=== PATIENT | female | born 1965 | race Caucasian/White ===

== ENCOUNTER 2017-11-07 12:14 | Observation (INO) ==
--- NOTE | 2017-11-07 13:35 | XR ---
EXAM DATE: 11/07/2017 1:30 PM EDT AGE/SEX: 52 years / Female INDICATIONS: . Pain left chest for 1 week, tingling in left arm CLINICAL DATA: This is the patient's initial encounter. Patient reports that signs and symptoms have been present for 1 week and indicates a pain score of 7/10. MEDICAL/SURGICAL HISTORY: None. None. COMPARISON: No prior exams available for comparison. FINDINGS: PA and lateral views of the chest demonstrate the lungs to be symmetrically aerated without evidence of mass, infiltrate or effusion. The cardiomediastinal contours are unremarkable. Osseous structures are intact. CONCLUSION: Negative examination. Electronically signed by: Adonis Barrientos MD 11/07/2017 1:34 PM EDT
[2017-11-07 13:52] LABS: Baso # (Auto) 0.1 th/mm3 (0.0-0.2); Baso % (Auto) 0.6 % (0.0-2.0); Eos # (Auto) 0.3 th/mm3 (0.0-0.4); Eos % (Auto) 2.6 % (0.0-4.0); Hematocrit 41.2 % (35.0-46.0); Hemoglobin 13.9 gm/dL (11.6-15.3); Lymph # (Auto) 3.2 th/mm3 (1.0-4.8); Lymph % (Auto) 33.1 % (9.0-44.0); Mean Corpuscular HGB Conc 33.8 % (32.0-36.0); Mean Corpuscular Hemoglobin 30.4 pg (27.0-34.0); Mean Platelet Volume 8.3 fL (7.0-11.0); Mono # (Auto) 0.7 th/mm3 (0.0-0.9); Mono % (Auto) 7.1 % (0.0-8.0); Neut # (Auto) 5.5 th/mm3 (1.8-7.7); Neut % (Auto) 56.6 % (16.0-70.0); Platelet Count 297 th/mm3 (150-450); Red Blood Count 4.58 mil/mm3 (4.00-5.30); White Blood Count 9.8 th/mm3 (4.0-11.0)
[2017-11-07 14:02] LABS: Activated Partial Thrombo Time 27.1 sec (24.3-30.1); INR 1.1 Ratio; Prothrombin Time 10.7 sec (9.8-11.6)
[2017-11-07 14:10] LABS: Anion Gap 7 meq/L (5-15); Blood Urea Nitrogen 12 mg/dL (7-18); Calcium 9.2 mg/dL (8.5-10.1); Carbon Dioxide 26.7 meq/L (21.0-32.0); Chloride 109 meq/L (98-107); Glomerular Filtration Rate 75 mL/min (>89); Glucose,Random 83 mg/dL (74-106); Potassium 4.4 meq/L (3.5-5.1); Sodium 143 meq/L (136-145)
[2017-11-07 14:14] LABS: Creatine Kinase 117 U/L (26-192)
[2017-11-07 14:27] LABS: Creatine Kinase MB 1.7 ng/mL (0.5-3.6)
--- NOTE | 2017-11-07 14:30 | ED ---
HPI General Chief Complaint: Chest Pain Stated Complaint: Chest Pain/ SOB/ Left arm radiation Time Seen by Provider: 11/07/17 14:17 History of Present Illness HPI narrative: This patient complains of chest pain. Location is left upper chest. It has been coming and going on and off for a week. Feels like an aching and a pressure. Sometimes she does have symptoms radiate down the left arm. Symptoms are not exertional. They can last for hours but do resolve spontaneously. No alleviating factors. No exacerbating factors. Severity is moderate. She has no history of cardiac disease and has never had stress testing. She is running high blood pressure today, not sure if she has chronic hypertension. She does smoke. Complete Quality Measures for STEMI Alert Patients Related Data Home Medications Medication Instructions Recorded Confirmed No Known Home Medications 11/07/17 11/07/17 Allergies Allergy/AdvReac Type Severity Reaction Status Date / Time penicillin G Allergy Severe BREAKS OUT Verified 11/07/17 12:24 IN A HIVES ALL OVER THE BODY INCLUDING THE FACE Review of Systems Except as stated in HPI: all other systems reviewed are negative [facility] Medical History Medical History Patient denies medical problems (Acute) Social History Social History Substance History: No History of Abuse Second Hand Smoke Exposure: No Smoking Status: Current some day smoker Tobacco Type: Cigarettes How Often Do You Have a Drink Containing Alcohol: Never Recent Travel in [facility] within the Last 8 Weeks: No Recent Out of Country Travel within the Last 8 Weeks: No Substance Abuse Detail Marijuana: Substance Use Status: Active Route Used Substance Abuse: Inhalation Last Used: last week Reason for Use: Calm Down Immunization History Tetanus Immunization: <5 Years Hx Influenza Vaccine This Season: No Exam Narrative Exam Narrative: GENERAL: Well-nourished, well-developed patient in no apparent distress. SKIN: Focused skin assessment reveals no rash and nodules. Skin is Warm and dry. HEAD: Atraumatic. Normocephalic. EYES: Pupils equal and round. No scleral icterus. No injection or drainage. ENT: No nasal bleeding or discharge. Mucous membranes pink and moist. NECK: Trachea midline. No JVD. CARDIOVASCULAR: Regular rate and rhythm. No murmur appreciated. RESPIRATORY: No accessory muscle use. Clear to auscultation. Breath sounds equal bilaterally. GASTROINTESTINAL: Abdomen soft, non-tender, nondistended. Hepatic and splenic margins not palpable. MUSCULOSKELETAL: No obvious deformities. No clubbing. No cyanosis. No edema. NEUROLOGICAL: Awake and alert. No obvious cranial nerve deficits. Motor grossly within normal limits. Normal speech. PSYCHIATRIC: Appropriate mood and affect; insight and judgment normal. Course Initial Documented Vital Signs Temperature 98.2 F 11/07/17 12:21 Pulse Rate 60 11/07/17 12:21 Respiratory Rate 15 11/07/17 12:21 Blood Pressure 150/83 H 11/07/17 12:21 Pulse Oximetry 99 11/07/17 12:21 Last Documented Vital Signs Temperature 98.2 F 11/07/17 12:21 Pulse Rate 60 11/07/17 14:33 Respiratory Rate 17 11/07/17 14:31 Blood Pressure 150/68 H 11/07/17 14:31 Pulse Oximetry 100 11/07/17 14:31 Medical Decision Making MDM Narrative Medical decision making narrative: IV placed and labs sent I gave her an aspirin I reviewed her EKG which looks normal I reviewed her chest x-ray which is normal Lab studies are normal including one set of cardiac enzymes. She has Multiple risk factors for cardiac disease. I am recommending 23 hour observation in the chest pain center to rule out cardiac cause of her symptoms. She is currently deciding if she will agree to stay or sign out speaking with her daughter in the room who is a [employer] RN. She has agreed to stay. Differential Diagnosis Differential Diagnosis: Differential diagnosis includes NH, angina, pericarditis , pleurisy, GERD, anxiety. Medical Records Medical records reviewed: Yes I reviewed the patient's medical records. Lab Data Result diagrams: 11/07/17 12:56 11/07/17 12:56 Lab Results 11/07/17 11/07/17 11/07/17 Range/Units 12:56 12:56 12:56 WBC 9.8 (4.0-11.0) th/mm3 RBC 4.58 (4.00-5.30) mil/mm3 Hgb 13.9 (11.6-15.3) gm/dL Hct 41.2 (35.0-46.0) % MCV 90.0 (80.0-100.0) fL MCH 30.4 (27.0-34.0) pg MCHC 33.8 (32.0-36.0) % RDW 14.0 (11.6-17.2) % Plt Count 297 (150-450) th/mm3 MPV 8.3 (7.0-11.0) fL Neut % (Auto) 56.6 (16.0-70.0) % Lymph % (Auto) 33.1 (9.0-44.0) % [place] % (Auto) 7.1 (0.0-8.0) % Eos % (Auto) 2.6 (0.0-4.0) % Baso % (Auto) 0.6 (0.0-2.0) % Neut # (Auto) 5.5 (1.8-7.7) th/mm3 Lymph # (Auto) 3.2 (1.0-4.8) th/mm3 [place] # (Auto) 0.7 (0.0-0.9) th/mm3 Eos # (Auto) 0.3 (0.0-0.4) th/mm3 Baso # (Auto) 0.1 (0.0-0.2) th/mm3 WBC Differential . Differential Comment Auto diff final PT 10.7 (9.8-11.6) sec INR 1.1 Ratio APTT 27.1 (24.3-30.1) sec Sodium 143 (136-145) meq/L Potassium 4.4 (3.5-5.1) meq/L Chloride 109 H (98-107) meq/L Carbon Dioxide 26.7 (21.0-32.0) meq/L Anion Gap 7 (5-15) meq/L BUN 12 (7-18) mg/dL Creatinine 0.80 (0.50-1.00) mg/dL Estimated GFR 75 L (>89) mL/min Random Glucose 83 (74-106) mg/dL Calcium 9.2 (8.5-10.1) mg/dL Total Creatine Kinase 117 (26-192) U/L CK-MB (CK-2) 1.7 (0.5-3.6) ng/mL Troponin I Less than 0.02 L (0.02-0.05) ng/mL Imaging Data Radiologist's impression: Chest X-Ray 11/07/17 12:26 CONCLUSION: Negative examination. Discharge Plan Discharge Disposition Patient Disposition: 30 Still Patient Discharge Details Diagnosis: Atypical chest pain Physicians Team ED Provider: Luis Leon Primary Care Provider: Primary Care Physici,No Rxs /Orders / Referrals /Forms Prescriptions: No Action No Known Home Medications RF: 0 Discharge Instructions Patient Printed Instructions: Chest Pain (ED) Discharge Interventions Interventions: Vital Signs Last Done: 11/07/17 14:33 Status ED Status: With Doctor
[2017-11-08 03:26] VITALS: O2SAT 98
[2017-11-08 07:46] VITALS: TEMP 98
--- NOTE | 2017-11-08 08:19 | P.HPCA ---
History of Present Illness Primary Care Physician: No Primary Care Physician Chief Complaint: Chest pain History of Present Illness: 52-year-old female with no past significant medical history presents emergency room for further evaluation chest pain. Onset 1 week. Location left anterior chest. Characterized as squeezing. Mild to moderate in severity. No radiation of discomfort although endorses left arm numbness and tingling. Duration generally lasts one hour, followed by lingering discomfort for a couple of hours. No associated symptoms of nausea, vomiting, diaphoresis. Endorses slight dyspnea. Does not hurt to take a deep breath. Certain movements such as moving left arm or laying on left side improves discomfort. No precipitating or relieving factors. Denies similar pain in the past. Discomfort occurs daily, no particular time of day. Yesterday episode began around 0700 and last many hours. Endorses current situation stress and wonders if discomfort may be stress related. Currently has nonproductive cough, no fever , illness, or recent injury. No known medical problems, has not seen an PCP in years. Denies past cardiac testing. - Diagnosis (1) Atypical chest pain (2) Tobacco use Review of Systems All other systems reviewed negative except as stated in [facility] PMF[facility] - History History Provided By: Patient - Medical History Medical History: Medical History (Last Reviewed 11/08/17 @ 08:57 by DIGNA Saucedo) Patient denies medical problems - Surgical History Surgical History: Surgical History (Last Updated 11/08/17 @ 08:57 by DIGNA Saucedo) H/O section - Family History Family History: Family History (Last Updated 11/08/17 @ 08:58 by DIGNA Saucedo) Father Hx of CABG Mother Hx of CABG - Tobacco History Second Hand Smoke Exposure: No Tobacco Use In Past 30 Days: Yes (3 cigarettes/weekly) Smoking Status: Current some day smoker Tobacco Type: Cigarettes - Alcohol History How Often Do You Have a Drink Containing Alcohol: Never - Substance Use History Substance History: No History of Abuse - Substance Use Type Marijuana Status: Active Route Used: Inhalation Last Used: last week Reason for Use: Calm Down - Travel History History of Recent Travel: No Recent Travel in the [place] Within the Last 8 Weeks: No Recent Travel Out of the Country Within the Last 8 Weeks: No - Immunization History Tetanus Immunization: <5 Years Hx Influenza Vaccine This Season: No Medications and Allergies Allergies Allergy/AdvReac Type Severity Reaction Status Date / Time penicillin G Allergy Severe BREAKS OUT Verified 11/07/17 12:24 IN A HIVES ALL OVER THE BODY INCLUDING THE FACE Home Medications Medication Instructions Recorded Confirmed Type No Known Home Medications 11/07/17 11/07/17 History Exam Vital signs: Vital Signs 11/07/17 12:21 11/07/17 14:17 11/07/17 14:31 Temperature 98.2 F Pulse Rate 60 60 65 Respiratory Rate 15 18 17 Blood Pressure 150/83 H 181/84 H 150/68 H Pulse Oximetry 99 100 100 11/07/17 14:33 11/07/17 17:47 11/07/17 20:00 Temperature 98.4 F 98.6 F Pulse Rate 60 82 63 Respiratory Rate 20 16 Blood Pressure 136/82 144/81 H Pulse Oximetry 94 L 98 11/07/17 21:20 11/08/17 00:00 11/08/17 03:25 Temperature 98.3 F 98.3 F Pulse Rate 63 64 63 Respiratory Rate 16 16 Blood Pressure 128/68 124/65 Pulse Oximetry 97 98 11/08/17 04:00 11/08/17 07:45 Temperature 98.0 F Pulse Rate 56 L 66 Respiratory Rate 16 Blood Pressure 131/73 Pulse Oximetry Intake & Output 11/07/17 11/08/17 11/08/17 18:59 06:59 18:59 Weight 75.75 kg Other: # Voids 2 # Bowel Movements 0 Narrative: Pleasant female in no acute distress - Constitutional no acute distress, average body habitus - Routine HEENT Exam Head: Present: normocephalic, atraumatic Eye: Present: EOMI, PERRL, normal accommodation ENT: Present: mucous membranes moist, dentition normal - Routine Neck Exam Present: supple, full ROM. Absent: JVD - Routine Chest/Breast/Axilla Exam Chest wall: Absent: tenderness - Routine Respiratory Exam Present: CTA bilaterally. Absent: rhonchi, wheezes, crackles - Routine Cardiovascular Exam Present: RRR. Absent: murmur, gallop, rubs - Routine Abdominal Exam Present: soft, normoactive bowel sounds. Absent: tenderness, distended - Routine Extremities Exam Present: full ROM, pulses intact. Absent: edema - Routine Skin Exam Present: intact, dry, warm - Routine Neurological Exam Present: alert, oriented X3, CN II-XII intact, moving all extremities, normal tone - Routine Psychiatric Exam Present: normal affect, normal thought process, cooperative, good insight, good judgment Comments: Mildly anxious. Results 11/07/17 12:56 11/07/17 12:56 Cardiac Enzymes 11/07/17 11/07/17 11/07/17 Range/Units 12:56 18:15 21:00 CK-MB (CK-2) 1.7 (0.5-3.6) ng/mL Troponin I Less than 0.02 L Less than 0.02 L Less than 0.02 L (0.02-0.05) ng/mL 11/08/17 Range/Units 05:35 CK-MB (CK-2) (0.5-3.6) ng/mL Troponin I Less than 0.02 L (0.02-0.05) ng/mL Coagulation 11/07/17 Range/Units 12:56 PT 10.7 (9.8-11.6) sec APTT 27.1 (24.3-30.1) sec CBC 11/07/17 Range/Units 12:56 WBC 9.8 (4.0-11.0) th/mm3 RBC 4.58 (4.00-5.30) mil/mm3 Hgb 13.9 (11.6-15.3) gm/dL Hct 41.2 (35.0-46.0) % Plt Count 297 (150-450) th/mm3 Neut # (Auto) 5.5 (1.8-7.7) th/mm3 Lymph # (Auto) 3.2 (1.0-4.8) th/mm3 [place] # (Auto) 0.7 (0.0-0.9) th/mm3 Eos # (Auto) 0.3 (0.0-0.4) th/mm3 Baso # (Auto) 0.1 (0.0-0.2) th/mm3 Comprehensive Metabolic Panel 11/07/17 Range/Units 12:56 Sodium 143 (136-145) meq/L Potassium 4.4 (3.5-5.1) meq/L Chloride 109 H (98-107) meq/L Carbon Dioxide 26.7 (21.0-32.0) meq/L BUN 12 (7-18) mg/dL Creatinine 0.80 (0.50-1.00) mg/dL Calcium 9.2 (8.5-10.1) mg/dL Intake and Output 11/07/17 11/08/17 11/08/17 22:59 06:59 14:59 Other: # Voids 2 # Bowel Movements 0 EKG interpretations - EKG EKG results cardiology: sinus rhythm, normal axis, normal QRS, normal ST/T Caprini VTE Risk Assessment Caprini VTE Risk Assessment: No/Low Risk (score <= 1) Caprini Risk Assessment Model: Point Value = 1 Point Value = 2 Point Value = 3 Point Value = 5 Age 41-60 Minor surgery BMI > 25 kg/m2 Swollen legs Varicose veins or History of unexplained or recurrent spontaneous Oral contraceptives or hormone replacement Sepsis (< 1 month) Serious lung disease, including pneumonia (< 1 month) Abnormal pulmonary function Acute myocardial infarction Congestive heart failure (< 1 month) History of inflammatory bowel disease Medical patient at bed rest Age 61-74 Arthroscopic surgery Major open surgery (> 45 min) Laparoscopic surgery (> 45 min) Malignancy Confined to bed (> 72 hours) Immobilizing plaster cast Central venous access Age >= 75 History of VTE Family history of VTE Factor V Leiden Prothrombin [id number] Lupus anticoagulant Anticardiolipin antibodies Elevated serum homocysteine Heparin-induced thrombocytopenia Other congenital or acquired thrombophilia Stroke (< 1 month) Elective arthroplasty Hip, pelvis, or leg fracture Acute spinal cord injury (< 1 month) Prophylaxis Regimen: Total Risk Factor Score Risk Level Prophylaxis Regimen 0-1 Low Early ambulation 2 Moderate Order ONE of the following: *Sequential Compression Device (SCD) *Heparin 5000 units SQ BID 3-4 Higher Order ONE of the following medications: *Heparin 5000 units SQ TID *Enoxaparin/Lovenox 40 mg SQ daily (WT < 150 kg, CrCl > 30 mL/min) *Enoxaparin/Lovenox 30 mg SQ daily (WT < 150 kg, CrCl > 10-29 mL/min) *Enoxaparin/Lovenox 30 mg SQ BID (WT < 150 kg, CrCl > 30 mL/min) AND/OR *Sequential Compression Device (SCD) 5 or more Highest Order ONE of the following medications: *Heparin 5000 units SQ TID (Preferred with Epidurals) *Enoxaparin/Lovenox 40 mg SQ daily (WT < 150 kg, CrCl > 30 mL/min) *Enoxaparin/Lovenox 30 mg SQ daily (WT < 150 kg, CrCl > 10-29 mL/min) *Enoxaparin/Lovenox 30 mg SQ BID (WT < 150 kg, CrCl > 30 mL/min) AND *Sequential Compression Device (SCD) Assessment and Plan - Assessment (1) Atypical chest pain Code(s): R07.89 - Other chest pain Status: Acute Onset Date: ~10/31/17 Plan: Admitted chest pain center. ACS ruled out with 3 sets of EKGs and cardiac enzymes. Monitor on telemetry overnight. Seen and evaluated by Dr. Kavitha Escoto. Proceed with exercise cardiac testing this morning. If unremarkable, plans are to discharge home with follow-up with PCP. Strongly care provider for medical management and preventative care. Verbalized understanding and agreeable to plan of care. (2) Tobacco use Code(s): Z72.0 - Tobacco use Status: Chronic Plan: Strongly encouraged stress importance of tobacco cessation. Instructed to quit smoking.
[2017-11-08 12:12] VITALS: BP 126/71; PULSE 73; RESP 18
--- NOTE | 2017-11-08 14:25 | NM ---
EXAM DATE: 11/08/2017 2:04 PM EDT AGE/SEX: 52 years / Female INDICATIONS: Angina. Abnormal EKG Substernal chest pain. CLINICAL DATA: This is the patient's initial encounter. Patient reports that signs and symptoms have been present for 1 day and indicates a pain score of 5/10. MEDICAL/SURGICAL HISTORY: None. Tubal ligation. section. COMPARISON: No prior exams available for comparison. DOSE: 8.5 mCi Tc 99m Myoview at rest 25.4 mCi [id number] at stress REST HEART RATE: 88 BPM TARGET HEART RATE: 143 BPM MAX HEART RATE: 149 BPM REST BLOOD PRESSURE: 120/76 mmHg MAX BLOOD PRESSURE: 150/76 mmHg EJECTION FRACTION: 59 % TECHNIQUE: The patient underwent upright treadmill exercise in the chest pain center. Continuous EC G tracing was monitored during stress. Gated SPECT imaging was performed after stress, and conventio nal SPECT imaging was performed at rest. The examination was performed on a SPECT/CT scanner, both a ttenuation-corrected and non-corrected datasets were reviewed. FINDINGS: Distribution: The maximum perfused segment at stress is in the inferior wall. Perfusion: The pattern of perfusion at stress is within normal limits. Gated Study: There are intact wall motion and wall thickening without hypokinetic or dyskinetic segme nts. The ejection fraction is calculated at 59%. RISK CATEGORY: Low (<1% Annual Motality Rate) CONCLUSION: Unremarkable myocardial perfusion. Electronically signed by: Dat Hess MD 11/08/2017 2:23 PM EDT
--- NOTE | 2017-11-08 16:44 | TR ---
Date Performed: 11/08/2017 Time Performed: 10:38:35 DOCTOR: Kavitha Escoto DRUG LIST: CLINICAL HISTORY: REASON FOR TEST: REASON FOR ENDING: OBSERVATION: CONCLUSION: Hiram protocol completed. Stopped sec to reaching target heart and inabiltity to acc urately read st t segment. Nonspecific st t segment changes once stood up that did not resolve with e xercise. No reprod chest discomfort. Will proceed with nuclear exercise testing. Maximum LH=900 Max H R Achieved=89.0% Maximum ZC=571/84 Total Exercise Time=6:12. No ectopy. Good exercise tolerance. Norm al bp response. COMMENTS: Abnormal- nonspecific ST changes at baseline and concerning for ischemia. Consider nu c stress
--- NOTE | 2017-11-08 16:44 | TR ---
Date Performed: 11/08/2017 Time Performed: 13:08:44 DOCTOR: Kavitha Escoto DRUG LIST: CLINICAL HISTORY: REASON FOR TEST: REASON FOR ENDING: OBSERVATION: CONCLUSION: Hiram protocol completed. Stopped sec to exceeding target heart rate and leg fatigue . Maximum KG=850 Max HR Achieved=89.0% Maximum NU=181/76 Total Exercise Time=6:01. No reprod chest pa in. Infrequent PVC. Baseline nonspecific st t changes. Good exercise tolerance. Normal bp response. R ecovery quick and unremarkable. Nuclear images pending. COMMENTS: Borderline ST changes -
--- NOTE | 2017-11-08 16:49 | ECG ---
Date Performed: 11/07/2017 Time Performed: 20:59:52 PTAGE: 52 years EKG: Sinus rhythm NORMAL ECG Since PREVIOUS TRACING , no significant change noted DOCTOR: Kavitha Escoto Interpretating Date/Time 11/08/2017 16:48:40
--- NOTE | 2017-11-08 16:50 | ECG ---
Date Performed: 11/07/2017 Time Performed: 18:02:19 PTAGE: 52 years EKG: SINUS BRADYCARDIA WITH SINUS ARRHYTHMIA BORDERLINE ECG Since PREVIOUS TRACING , no significant change noted DOCTOR: Kavitha Escoto Interpretating Date/Time 11/08/2017 16:49:37
--- NOTE | 2017-11-08 16:53 | ECG ---
Date Performed: 11/07/2017 Time Performed: 12:46:38 PTAGE: 52 years EKG: Sinus rhythm NORMAL ECG NO PREVIOUS TRACING DOCTOR: Kavitha Escoto Interpretating Date/Time 11/08/2017 16:51:30
== END 2017-11-08 15:47 | disposition home or self-care (01) ==
LOC: NEPE 12:14 → NEPHCDU 12:14 → NEDA 12:14 → NEPHCDU 17:18
PROVIDERS: ADMIT Internal Medicine Interventional Cardiology; ATTEND Internal Medicine Interventional Cardiology